=== PATIENT | female | born 1975 | race African-American/Black ===

== ENCOUNTER 2021-04-23 12:12 | Emergency (ER) | payer SELFPAY ==
[~2021-04-23] VITALS: Ht 167.6 cm; Wt 82.0 kg
[2021-04-23] MEDS ORDERED: SODIUM CHLORIDE 0.9% 1,000 ML IV ONE (12:30)
[2021-04-23 13:19] VITALS: BP 96/54
== END 2021-04-23 13:25 | disposition left against medical advice (07) ==
LOC: ER 12:33
DX: R44.3 Hallucinations, unspecified (principal); F15.10 Other stimulant abuse, uncomplicated; F17.210 Nicotine dependence, cigarettes, uncomplicated
CPT/HCPCS: 99283; J7030